=== PATIENT | female | born 1985 ===

== ENCOUNTER 2017-10-24 14:23 | Inpatient (IN) | payer OTHER ==
[~2017-10-24] VITALS: Ht 124.5 cm; Wt 5.0 kg
[2017-10-24] MEDS ORDERED: PRENATAL 19 TA1 EACH (16:27)
[2017-10-24] MEDS ORDERED: FOLIC ACID0.4 MG (16:28)
[2017-10-24] MEDS ORDERED: SYNTHROID112 MCG (16:28)
== END 2017-10-31 14:09 | DRG 781 ==
LOC: OB/GYN 14:23
PROC: 4A1HXCZ Monitoring of Products of Conception, Cardiac Rate, External Approach (ICD-10-PCS; principal; 2017-10-24)
DX: O23.33 Infections of other parts of urinary tract in pregnancy, third trimester (principal); O98.813 Other maternal infectious and parasitic diseases complicating pregnancy, third trimester; B95.1 Streptococcus, group B, as the cause of diseases classified elsewhere; O99.283 Endocrine, nutritional and metabolic diseases complicating pregnancy, third trimester; E03.8 Other specified hypothyroidism

== ENCOUNTER 2017-11-02 05:59 | Inpatient (IN) | payer OTHER ==
[~2017-11-02] VITALS: Ht 162.6 cm; Wt 104.3 kg
[~2017-11-02 05:59] MED LIST: FOLIC ACID0.4 MG; PRENATAL 19 TA1 EACH; SYNTHROID112 MCG
[2017-11-08] MEDS ORDERED: FERROUS SULFAT325 MG PO (11:48)
== END 2017-11-08 14:03 | DRG 775 ==
LOC: LDR 05:59 → OB/GYN 05:59
PROC: BY4FZZZ Ultrasonography of Third Trimester, Single Fetus (ICD-10-PCS; 2017-11-02)
PROC: 10E0XZZ Delivery of Products of Conception, External Approach (ICD-10-PCS; principal; 2017-11-05)
PROC: 0UQGXZZ Repair Vagina, External Approach (ICD-10-PCS; 2017-11-05)
PROC: 3E0P7VZ Introduction of Hormone into Female Reproductive, Via Natural or Artificial Opening (ICD-10-PCS; 2017-11-05)
PROC: 3E033VJ Introduction of Other Hormone into Peripheral Vein, Percutaneous Approach (ICD-10-PCS; 2017-11-05)
PROC: 4A1HXCZ Monitoring of Products of Conception, Cardiac Rate, External Approach (ICD-10-PCS; 2017-11-05)
DX: O71.4 Obstetric high vaginal laceration alone (principal); O86.29 Other urinary tract infection following delivery; O99.824 Streptococcus B carrier state complicating childbirth; O99.284 Endocrine, nutritional and metabolic diseases complicating childbirth; E03.8 Other specified hypothyroidism; Z3A.35 35 weeks gestation of pregnancy; Z37.0 Single live birth